=== PATIENT | male | born 1975 | race Caucasian/White ===

== ENCOUNTER 2016-11-04 07:26 | Emergency (ER) | payer BC ==
[~2016-11-04] VITALS: Ht 162.6 cm; Wt 63.0 kg
[~2016-11-04 07:26] MED LIST: DIAZ5TAB4 PO; GLYB5TAB3 PO; METF-385 PO; NAPR-260 PO
[2016-11-04 07:28] VITALS: Ht 162.6 cm; Wt 63.0 kg
[2016-11-04] MEDS ORDERED: SOD CHLORIDE 0.9% 1,000 ML IV STA (08:32)
[2016-11-04 09:09] LABS: BASOPHILS % 0.5 % (0.0-2.0); EOSINOPHILS % 0.8 % (0.0-7.0); HEMATOCRIT 45.5 % (42.0-52.0); HEMOGLOBIN 15.3 g/dl (14.0-18.0); LYMPHOCYTES # 1.4 10^3/ul (0.8-2.9); LYMPHOCYTES % 23.4 % (15.0-51.0); MEAN CORPUSCULAR HEMOGLOBIN 31.2 pg (29.0-33.0); MEAN CORPUSCULAR HGB CONC 33.7 g/dl (32.0-37.0); MEAN CORPUSCULAR VOLUME 92.8 fl (82.0-101.0); MONOCYTE # 0.5 10^3/ul (0.3-0.9); MONOCYTES % 8.1 % (0.0-11.0); NEUTROPHIL # 3.9 10^3/ul (1.6-7.5); NEUTROPHILS % 67.2 % (39.0-77.0); PLATELET COUNT 283 10^3/UL (140-440); RED BLOOD COUNT 4.91 10^6/ul (4.70-6.10); RED CELL DISTRIBUTION WIDTH 12.5 % (11.5-14.5); UNCORRECTED WBC 5.9 10^3/ul (4.8-10.8); WHITE BLOOD COUNT 5.9 10^3/ul (4.8-10.8)
[2016-11-04 09:15] LABS: POTASSIUM 3.7 mmol/L (3.5-5.1)
[2016-11-04 09:15] LABS: ADD UMIC NO; URINE BILIRUBIN (Dip) NEGATIVE (NEGATIVE); URINE BLOOD (Dip) NEGATIVE (NEGATIVE); URINE COLOR LT. YELLOW (YELLOW); URINE KETONES (Dip) NEGATIVE (NEGATIVE); URINE LEUKOCYTE ESTERASE (Dip) NEGATIVE (NEGATIVE); URINE NITRITE (Dip) NEGATIVE (NEGATIVE); URINE TOTAL PROTEIN (Dip) NEGATIVE (NEGATIVE); URINE UROBILINOGEN (Dip) 0.2 E.U./dL (0.1-1.0)
[2016-11-04 09:16] LABS: CONDITION 1
[2016-11-04 09:17] LABS: CREATININE 0.81 mg/dl (0.61-1.24)
[2016-11-04] MEDS ORDERED: INSU100I22 SC (09:45)
[2016-11-04 09:49] VITALS: BP 145/79; PULSE 79; RESP 18; TEMP 97.9
--- NOTE | 2016-11-04 09:49 | ERD ---
ER Documentation Chief Complaint Date/Time DATE: 11/04/16 TIME: 09:47 Chief Complaint high sugars this morning and feeling dizzy. no neuro deficit noted HPI 41-year-old male history of insulin-dependent diabetes he takes NovoLog 15 units before meals. The patient states that this morning his Accu-Chek and glucometer read critical high and he was feeling dizzy. He describes slight increase urinary output. He denies any fevers, chills, chest pain, shortness of breath. No abdominal pain, no headache. The patient states that he took insulin just prior to coming in. The patient did admit that he does not regularly keep all have his NovoLog in a refrigerator. ROS All systems reviewed and are negative except as per history of present illness. Medications Home Meds Active Scripts Insulin Aspart (Novolog FlexPen) 100 Unit/1 Ml Insuln.pen, 15 UNITS SC TID for 30 Days, EA Prov:DANDY DOWNS MD 11/04/16 Diazepam* (Diazepam*) 5 Mg Tablet, 5 MG PO Q8 Y for MUSCLE SPASMS, #10 TAB Prov:ART MEZA PA-C 09/28/16 Naproxen* (Naprosyn*) 500 Mg Tablet, 500 MG PO BID Y for PAIN AND/OR INFLAMMATION, #30 TAB Prov:ART MEZA PA-C 09/28/16 Reported Medications Glyburide* (Glyburide*) 5 Mg Tablet, 10 MG PO DAILY 12/24/12 Metformin Hcl* (Metformin Hcl*) 850 Mg Tablet, 850 MG PO TID 12/24/12 Allergies Allergies: Coded Allergies: No Known Allergy (Unverified , 02/28/13) PMhx/Soc History of Surgery: No Anesthesia Reaction: No Hx Neurological Disorder: No Hx Respiratory Disorders: No Hx Cardiac Disorders: No Hx Psychiatric Problems: No Hx Miscellaneous Medical Probl: Yes (DM2) Hx Alcohol Use: No Hx Substance Use: No Hx Tobacco Use: No Smoking Status: Never smoker FmHx Family History: diabetes Physical Exam Vitals Vital Signs Date Time Temp Pulse Resp B/P Pulse Ox O2 Delivery O2 Flow Rate FiO2 11/04/16 07:28 98.5 102 20 134/86 98 Physical Exam General: Well developed, well nourished, no acute distress Head: Normocephalic, atraumatic. Eyes: Pupils equally reactive, EOM intact ENT: Moist mucous membranes Neck: Supple, no lymphadenopathy Respiratory: Lungs clear bilaterally, no distress Cardiovascular: RRR, no murmurs, rubs, or gallops Abdominal: Soft, non-tender, non-distended, no peritoneal signs : Deferred MSK: No edema, no unilateral swelling, 5/5 strength Neurologic: Alert and oriented, moving all extremities, normal speech, no focal weakness, no cerebellar signs Skin: No rash Psych: Normal mood Result Diagram: 11/04/16 0846 11/04/16 0846 Results 24 hrs Laboratory Tests Test 11/04/16 08:35 11/04/16 08:46 Bedside Glucose 199mg/dL Urine Bilirubin NEGATIVE Urine Clarity CLEAR Urine Color LT. YELLOW Urine Glucose 0.25%% Urine Hemoglobin NEGATIVE Urine Ketones NEGATIVE Urine Leukocyte Esterase NEGATIVE Urine Nitrite NEGATIVE Urine Specific Conde 1.020 Urine Total Protein NEGATIVE Urine Urobilinogen 0.2 E.U./dL Urine pH 5.5 Anion Gap 16 Basophils # 0.010^3/ul Basophils % 0.5% Blood Urea Nitrogen 18mg/dl Calcium Level 10.0mg/dl Carbon Dioxide Level 31mmol/L Chloride Level 103mmol/L Creatinine 0.81mg/dl Eosinophils # 0.010^3/ul Eosinophils % 0.8% Glucose Level 177mg/dl Hematocrit 45.5% Hemoglobin 15.3g/dl Lactic Acid Level 1.9mmol/L Lymphocytes # 1.410^3/ul Lymphocytes % 23.4% Mean Corpuscular Hemoglobin 31.2pg Mean Corpuscular Hemoglobin Concent 33.7g/dl Mean Corpuscular Volume 92.8fl Mean Platelet Volume 8.0fl Monocytes # 0.510^3/ul Monocytes % 8.1% Neutrophils # 3.910^3/ul Neutrophils % 67.2% Nucleated Red Blood Cells # 0.010^3/ul Nucleated Red Blood Cells % 0.0/100WBC Platelet Count 52335^3/UL Potassium Level 3.7mmol/L Red Blood Count 4.9110^6/ul Red Cell Distribution Width 12.5% Sodium Level 146mmol/L White Blood Count 5.910^3/ul Current Medications Medications (Trade) Dose Ordered Sig/Dyllan Route PRN Reason Start Time Stop Time Status Last Admin Dose Admin Sodium Chloride (NS) 1,000 ml @ 1,000 mls/hr Q1H STAT IV 11/04/16 08:32 11/04/16 08:36 DC Procedures/MDM LAB INTERPRETATION: Normal anion gap, no ketonuria, no low bicarb, normal white count MEDICAL DECISION MAKING: The patient presents with hyperglycemia. His laboratory testing does not suggest diabetic ketoacidosis. This is possibly related to glucometer failure versus an active insulin secondary to poor refrigeration. The patient is otherwise extremely well-appearing without signs of acute coronary syndrome, stroke or significant dehydration. The patient has normal laboratory testing. The patient was given reassurance. He is asking for refill of his NovoLog. This is provided. He was advised to follow-up with primary care physician. ER COURSE: Patient continued to do well without significant intervention. I kept the patient and/or family informed of laboratory and diagnostic imaging results throughout the emergency room course. DISPOSITION PLAN: We discussed follow up with the patient's primary care doctor within 24 to 48 hours as needed. We also discussed return to the emergency room for worsening symptoms or worsening condition. Discharge Medications: NovoLog 15 units 3 times daily with meals Quantities applied for 30 days Departure Diagnosis: Primary Impression: Hyperglycemia Condition: Stable Patient Instructions: Hyperglycemia (High Blood Sugar) Referrals: [facility] YOU HAVE RECEIVED A MEDICAL SCREENING EXAM AND THE RESULTS INDICATE THAT YOU DO NOT HAVE A CONDITION THAT REQUIRES URGENT TREATMENT IN THE EMERGENCY DEPARTMENT. FURTHER EVALUATION AND TREATMENT OF YOUR CONDITION CAN WAIT UNTIL YOU ARE SEEN IN YOUR DOCTORS OFFICE WITHIN THE NEXT 1-2 DAYS. IT IS YOUR RESPONSIBILITY TO MAKE AN APPOINTMENT FOR FOLOW-UP CARE. IF YOU HAVE A PRIMARY DOCTOR --you should call your primary doctor and schedule an appointment IF YOU DO NOT HAVE A PRIMARY DOCTOR YOU CAN CALL OUR PHYSICIAN REFERRAL HOTLINE AT IF YOU CAN NOT AFFORD TO SEE A PHYSICIAN YOU CAN CHOSE FROM THE FOLLOWING [facility] [address] [facility] [address] [facility] [facility] [address] [facility] [address] [facility] [address] [facility] [facility] [address] [facility]. [facility] YOU HAVE RECEIVED A MEDICAL SCREENING EXAM AND THE RESULTS INDICATE THAT YOU DO NOT HAVE A CONDITION THAT REQUIRES URGENT TREATMENT IN THE EMERGENCY DEPARTMENT. FURTHER EVALUATION AND TREATMENT OF YOUR CONDITION CAN WAIT UNTIL YOU ARE SEEN IN YOUR DOCTORS OFFICE WITHIN THE NEXT 1-2 DAYS. IT IS YOUR RESPONSIBILITY TO MAKE AN APPOINTMENT FOR FOLOW-UP CARE. IF YOU HAVE A PRIMARY DOCTOR --you should call your primary doctor and schedule and appointment IF YOU DO NOT HAVE A PRIMARY DOCTOR YOU CAN CALL OUR PHYSICIAN REFERRAL HOTLINE AT . IF YOU CAN NOT AFFORD TO SEE A PHYSICIAN YOU CAN CHOSE FROM THE FOLLOWING [facility] INSTITUTIONS: [facility] [address] [place] [address] [facility] [address] [place] [address] [facility] + [facility] [address] [place] [address] Additional Instructions: Call your primary care doctor TOMORROW for an appointment during the next 1 WEEK.Tell the litigation secretary that you were referred from this facility.See the doctor sooner or return here if your condition worsens before your appointment time. DANDY DOWNS MD Nov 04, 2016 09:49
== END 2016-11-04 09:50 | disposition home or self-care (01) ==
LOC: E/R 07:26
DX: E11.65 Type 2 diabetes mellitus with hyperglycemia (principal); Z79.4 Long term (current) use of insulin; Z79.84 Long term (current) use of oral hypoglycemic drugs
CPT/HCPCS: 36415; 80048; 81003; 82962; 83605; 85025; 93005; J7030